=== PATIENT | female | born 2000 | race Caucasian/White ===

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

== ENCOUNTER 2024-02-23 11:08 | Emergency (ER) | payer OTHER ==
[2024-02-23 11:19] VITALS: PULSE 103; RESP 16; O2SAT 97
[2024-02-23] MEDS: TORAdol 30 mg Injection IM ONE (11:24)
[2024-02-23] MEDS ORDERED: TORAdol 30 mg Injection ONE (11:24)
--- NOTE | 2024-02-23 12:11 | ERPHSYRPT ---
- History of Present Illness Time Seen by Provider: 02/23/24 11:11 Source: patient Exam Limitations: no limitations Patient Subjective Stated Complaint: fell, rolled ankle last night Triage Nursing Assessment: Presents to ED bed 8 ambulatory, c/o L foot pain after falling last night. Tripped and fell. A &OX3, answers questions appropriately. Vitals stable. Swelling noted to lateral aspect of L foot. Pedal pulse 2+, wiggles toes, cap refill <3 seconds. Sensation intact. Bruising starting to appear to top of foot on lateral side. Physician History: 23 years old female presented in the ER with complaint of left ankle and foot pain after she twisted last night. Patient reports moderate to severe sharp pain especially with ambulation/weightbearing. Swelling on the lateral ankle and lateral side of the foot. No numbness or tingling at the toes. No injury anywhere else. Allergies/Adverse Reactions: No Known Drug Allergies Allergy (Verified 09/21/20 07:46) Home Medications: Loratadine 02/23/24 [History] Propranolol HCl 02/23/24 [History] Trazodone HCl 02/23/24 [History] Hx Tetanus, Diphtheria Vaccination/Date Given: Yes Hx Influenza Vaccination/Date Given: Yes Hx Pneumococcal Vaccination/Date Given: No Travel Risk - International Travel Have you traveled outside of the country in past 3 weeks: No - Emerging Infectious Disease Are you exhibiting symptoms associated with any current EIDs: No - Review of Systems Constitutional: No Symptoms Ears, Nose, & Throat: No Symptoms Respiratory: No Symptoms Cardiac: No Symptoms Musculoskeletal: Fall, Injury, Joint Redness, Joint Pain Skin: No Symptoms Neurological: No Symptoms Hematologic/Lymphatic: No Symptoms - Past Medical History Pertinent Past Medical History: No Neurological History: No Pertinent History ENT History: No Pertinent History Cardiac History: No Pertinent History Respiratory History: Asthma Endocrine Medical History: No Pertinent History Musculoskeletal History: No Pertinent History GI Medical History: No Pertinent History History: No Pertinent History Psycho-Social History: No Pertinent History Female Reproductive Disorders: No Pertinent History Other Medical History: Anxiety, Cyst removal (infancy), Maddie reports hx of depression - Past Surgical History Past Surgical History: No Neuro Surgical History: No Pertinent History Cardiac: No Pertinent History Respiratory: No Pertinent History Gastrointestinal: No Pertinent History Genitourinary: No Pertinent History Musculoskeletal: No Pertinent History Female Surgical History: No Pertinent History Other Surgical History: cyst removal - Female History Hx Last Menstrual Period: no periods, on depo Hx Now: No - Social History Smoking Status: Never smoker Exposure to second hand smoke: Yes Drug Use: none Patient Lives Alone: No - Nursing Vital Signs Nursing Vital Signs: Initial Vital Signs Pulse Rate 103 H 02/23/24 11:14 Respiratory Rate 16 02/23/24 11:14 O2 Sat by Pulse Oximetry 97 02/23/24 11:14 Pain Scale Pain Intensity 9 - Physical Exam General Appearance: no apparent distress, alert Neck Exam: normal inspection, full range of motion Cardiovascular/Respiratory Exam: normal breath sounds, regular rate/rhythm Legs Exam: bilateral leg: non-tender, normal inspection, normal range of motion, no evidence of injury Knees Exam: bilateral knee: non-tender, normal inspection, normal range of motion, no evidence of injury Ankle Exam: right ankle: non-tender, normal inspection, normal range of motion, no evidence of injury, left ankle: bone tenderness (Lateral malleolus), pain, soft tissue tenderness, swelling Foot Exam: right foot: non-tender, normal inspection, normal range of motion, no evidence of injury, left foot: bone tenderness (Mid lateral foot), pain, soft tissue tenderness, swelling Neuro/Tendon Exam: normal sensation, normal motor functions, normal tendon functions Mental Status Exam: alert, oriented x 3, cooperative Skin Exam: normal color SpO2 Interpretation: normal SpO2: 97 O2 Delivery: Room Air Ordered Tests: Active Orders 24 hr Category Date Time Status ANKLE (3 VIEWS) Stat Exams 02/23/24 11:17 Ordered FOOT (MINIMUM 3 VIEWS) Stat Exams 02/23/24 11:17 Ordered Medication Summary Discontinued Medications Generic Name Dose Route Start Last Admin Trade Name Yrn PRN Reason Stop Dose Admin Ketorolac Tromethamine 30 mg 02/23/24 11:17 02/23/24 11:24 Ketorolac Tromethamine 30 Mg/Ml Inj IM 02/23/24 11:18 30 mg STAT ONE Administration Ketorolac Tromethamine Confirm 02/23/24 11:24 Ketorolac Tromethamine 30 Mg/Ml Inj Administered 02/23/24 11:25 Dose 30 mg .ROUTE .STK-MED ONE - Progress Progress: improved, pain not gone completely Progress Note: 02/23/24 12:11 23 years old is evaluated in the ER after she twisted her ankle leading to fall last night with swelling of left ankle and lateral foot. Patient has difficulty weightbearing. Has some tenderness in lateral malleolus and fifth metatarsal tarsal base. Given Toradol for symptomatic relief, feeling better on reevaluation. X-rays are negative for fracture dislocation in the ankle and foot reviewed by me, official report is pending. I believe patient has ankle/foot sprain, placed in long walking boot, recommended Tylenol ibuprofen, intermittent ice application and outpatient podiatry follow-up. Counseled pt/family regarding: diagnosis, need for follow-up, rad results Medical Desision Making - Independent Historian Additional History obtained from: Mother - Diagnostic Testing Diagnostic test were ordered, analyzed, and reviewed by me: Yes Radiological Interpretation: Interpreted by me, Reviewed by me - Risk of complications The pt has a mod risk of morbidity or mortality based on: Need for prescription drug management - Departure Departure Disposition: Home Clinical Impression: Ankle sprain, Foot sprain Condition: Stable Critical Care Time: No Referrals: JORGE ZARCO NP [Primary Care Provider] - Follow up with PCP 1 day ALIDA PISANO DPM [ACTIVE STAFF] - Follow up/PCP as directed (Call for appointment for reevaluation) Instructions: Foot Sprain (DC), Ankle Sprain ED Additional Instructions: Take Tylenol/ibuprofen as needed. Intermittent ice application. Weightbearing as tolerated. Follow-up with orthopedics for reevaluation. Return to ER for any worsening. Prescriptions: Ibuprofen 600 mg PO Q6HPRN PRN 10 Days #20 tablet PRN Reason: Pain
--- NOTE | 2024-02-23 19:28 | XRAY ---
Indication: Pain following fall. Comparison: None 3 view left ankle demonstrates mild lateral soft tissue swelling. No other bony, articular, or soft tissue abnormalities.
--- NOTE | 2024-02-23 19:29 | XRAY ---
Indication: Pain following fall. Comparison: None 3 nonweightbearing views left foot obtained. No bony, articular, or soft tissue abnormalities.
== END 2024-02-23 12:26 | disposition home or self-care (01) ==
LOC: ED 11:08
DX: S93.402A Sprain of unspecified ligament of left ankle, initial encounter (principal); S93.602A Unspecified sprain of left foot, initial encounter; W01.0XXA Fall on same level from slipping, tripping and stumbling without subsequent striking against object, initial encounter; Z79.899 Other long term (current) drug therapy
CPT/HCPCS: 73610; 73630; 96372; 99283; J1885; L4386